=== PATIENT | female | born 2000 | race Caucasian/White ===

== ENCOUNTER 2023-09-10 09:26 | Outpatient (CLI) | payer OTHER, SELFPAY ==
[2023-09-10] MEDS: Lidocaine 2% (5ml sdv) 5 ML VIAL.MPF INFILT ×2 (10:05→10:19)
[2023-09-10] MEDS: Gadoterate Meglumine Diluted 10 ML, Iopamidol 5 ML, Lidocaine 1% (20 ml mdv) 5 ML, Epin... INTRAARTIC ×2 (10:08→10:23)
[2023-09-10] MEDS: Iopamidol 10 ML in Syringe 1 EACH 600 ML INTRAARTIC ×2 (10:08→10:23)
--- NOTE | 2023-09-10 10:39 | MRI_ITS ---
STUDY: MRI ARTHROGRAM OF THE RIGHT HIP REASON FOR EXAM: Female, 22 years old. HIP PAIN TECHNIQUE: TECHNIQUE: Intra-articular injection of 10 ml of Clariscan mixed with additional contrast material was performed by an on-site physician whose name was not provided. T1, T2, and fat suppressed images were obtained in all three orthogonal planes. COMPARISON: Right hip arthrogram dated September 10, 2023 FINDINGS: There is intra-articular contrast distention of the right hip articulation, secondary to the gadolinium injection, with adequate capsular distention. Normal hip joint without articular joint space narrowing. Normal acetabulum. Small delamination linear tear in the labrum at the lateral aspect of the acetabular roof see image #11/20 series 6 additional fraying and intrasubstance degenerative signal is seen in the far anterior aspect of the labrum of the acetabular roof as demonstrated on image 12/20 series 6. No complete detachment of the labrum is demonstrated. Normal posterior acetabular labrum. No marrow edema or occult fracture or osteonecrosis is present. No loose bodies are seen in the joint space. Normal femoral head. Normal femoral neck and intratrochanteric region. Normal gluteus minimus, medius and iliopsoas tendons and distal insertions. There is no trochanteric, iliopsoas or iliopectineal bursitis. Normal superior and inferior pubic rami. Normal pubic symphysis. Normal ischial tuberosity. Normal origin of the hamstring tendons. Normal visualized iliac wing, sacroiliac joint, and sacral ala. Normal visualized soft tissue structures of the pelvis. RIGHT HIP MRI/Lower Ext/Jt Only/W Contrast IMPRESSION: 1. Small delamination linear tear in the labrum at the lateral aspect of the acetabular roof see image #11/20 series 6 additional fraying and intrasubstance degenerative signal is seen in the far anterior aspect of the labrum of the acetabular roof as demonstrated on image 12/20 series 6. No complete detachment of the labrum is demonstrated. Normal posterior acetabular labrum. Electronically Signed: Terrence Burnette MD at 16:19 EST ,
--- NOTE | 2023-09-10 10:40 | MRI_ITS ---
STUDY: MRI ARTHROGRAM LEFT HIP REASON FOR EXAM: Female, 22 years old. HIP PAIN; TECHNIQUE: Standardized fat and water weighted pulse sequences were obtained in all 3 orthogonal planes following the intra-articular administration of contrast. COMPARISON: None. FINDINGS: Normal hip joint without articular joint space narrowing. Normal acetabulum. There is tear of the anterior labrum, series 6 image 17/. Normal femoral head. Normal femoral neck and intratrochanteric region. There is no demonstrated fracture. Normal gluteus minimus, medius and iliopsoas tendons and distal insertions. There is no trochanteric, iliopsoas or iliopectineal bursitis. Normal superior and inferior pubic rami. Normal pubic symphysis. Normal ischial tuberosity. Normal origin of the hamstring tendons. Normal visualized iliac wing, sacroiliac joint, and sacral ala. Normal visualized soft tissue structures of the pelvis. MRI/Lower Ext/Jt Only/W Contrast IMPRESSION: Tear of the anterior labrum. No fracture or avascular necrosis. Electronically Signed: Ezekiel Toledo MD at 18:14 [facility] ,
--- NOTE | 2023-09-10 13:36 | PCM.OP.PRO ---
Procedure Report Date of Procedure: 09/10/23 Assessment & Plan Assessment/Plan (1) Bilateral hip pain: PLAN: PROCEDURE: Arthrogram-right hip ORDERING PROVIDER: Marilu Cutler PA-C INDICATION: Female, 22 years old. Bilateral hip pain. PROVIDER: Kierra Ryder APRN-ROSALBA CONSENT: The procedure as well as the benefits and possible complications including bleeding and infection were explained to the patient. Informed consent was obtained. TECHNIQUE: The patient was positioned supine. The overlying skin was prepped and draped in the usual sterile fashion. Following injection of local anesthetic with 2% lidocaine and under direct fluoroscopic guidance, a 22-gauge spinal needle was placed into the right hip joint space. 2 cc of Isovue 300 was injected for confirmation. Following this, 10 cc of arthrogram contrast (gadoterate, iopamidol, lidocaine, and epinephrine), compounded by pharmacy, was injected. All elements of maximal sterile barrier technique followed. Patient tolerated procedure well. IMPRESSION: Successful fluoroscopic guided arthrogram of the right hip. Procedures Radiology Radiology Xray Procedures: 25441 Arthrogram Hip (RIGHT)
--- NOTE | 2023-09-10 13:39 | PCM.OP.PRO ---
Procedure Report Date of Procedure: 09/10/23 Assessment & Plan Assessment/Plan (1) Bilateral hip pain: PLAN: PROCEDURE: Arthrogram-left hip ORDERING PROVIDER: Marilu Cutler PA-C INDICATION: Female, 22 years old. Bilateral hip pain. PROVIDER: Kierra Ryder APRN-ROSALBA CONSENT: The procedure as well as the benefits and possible complications including bleeding and infection were explained to the patient. Informed consent was obtained. TECHNIQUE: The patient was positioned supine. The overlying skin was prepped and draped in the usual sterile fashion. Following injection of local anesthetic with 2% lidocaine and under direct fluoroscopic guidance, a 22-gauge spinal needle was placed into the left hip joint space. 2 cc of Isovue 300 was injected for confirmation. Following this, 10 cc of arthrogram contrast (gadoterate, iopamidol, lidocaine, and epinephrine), compounded by pharmacy, was injected. All elements of maximal sterile barrier technique followed. Patient tolerated procedure well. IMPRESSION: Successful fluoroscopic guided arthrogram of the left hip. Procedures Radiology Radiology Xray Procedures: [id number] Arthrogram Hip (LEFT)
== END 2023-09-10 23:59 | disposition home or self-care (01) ==
LOC: RAD 09:31
DX: M25.551 Pain in right hip (principal); M25.552 Pain in left hip
CPT/HCPCS: 27093; 73722; 77002; Q9965; Q9967